=== PATIENT | male | born 1960 | race Caucasian/White ===

== ENCOUNTER 2020-01-02 18:11 | Emergency (ER) | payer MEDICAID ==
[~2020-01-02] VITALS: Ht 167.6 cm; Wt 95.7 kg
[~2020-01-02 18:11] MED LIST: ALBU6.7H9 INH; AMIT-189 PO; BENA20TA2 PO; BUPR100T4 PO; FENO134C9 PO; FENO145T38 PO; FLO0.4C PO; GABA-532 PO; NAPR-1154 PO; OMEP20CA4 PO; QUET300T2 PO; SPIIN INH; TIZA4TAB11 PO
[2020-01-02 18:25] VITALS: BP 137/108
[2020-01-02] MEDS ORDERED: SULF1TAB49 PO (19:26)
== END 2020-01-02 19:34 | disposition home or self-care (01) ==
LOC: ER 18:12
DX: L02.413 Cutaneous abscess of right upper limb (principal); R20.0 Anesthesia of skin; I10 Essential (primary) hypertension; K21.9 Gastro-esophageal reflux disease without esophagitis; G89.29 Other chronic pain; Z90.49 Acquired absence of other specified parts of digestive tract; Z79.2 Long term (current) use of antibiotics; Z79.899 Other long term (current) drug therapy
CPT/HCPCS: 99283

== ENCOUNTER 2021-06-17 13:09 | Inpatient (IN) | payer MEDICAID ==
[~2021-06-17] VITALS: Ht 162.6 cm; Wt 140.0 kg
[2021-06-17] MEDS ORDERED: ringers solution, lacted 1,000 ML IV ONE ×3 (13:55→16:40)
[2021-06-17] MEDS ORDERED: iohexol 300mg/ml 100ml inj. ONE (14:12)
[2021-06-17 14:18] LABS: BASOPHILS % (AUTO) 0.2 % (0-1); EOSINOPHILS % (AUTO) 0.2 % (0-6); HEMATOCRIT 52.6 % (42.0-52.0); HEMOGLOBIN 17.7 g/dl (14.0-17.9); LYMPHOCYTES # (AUTO) 0.9 X10'3 (1.1-4.8); LYMPHOCYTES % (AUTO) 4.6 % (21-51); MEAN CORPUSCULAR HEMOGLOBIN 32.1 PG (27.0-31.0); MEAN CORPUSCULAR HGB CONC 33.6 g/dL (33.0-36.5); MEAN CORPUSCULAR VOLUME 95.6 FL (78-98); MEAN PLATELET VOLUME 8.4 FL (7.4-10.4); MONOCYTES # (AUTO) 0.8 X10'3 (0-0.9); NEUTROPHILS # (AUTO) 17.3 X10'3 (1.8-7.7); PLATELET COUNT 237 X10'3 (140-440); RED CELL DISTRIBUTION WIDTH 13.5 % (11.5-14.5)
[2021-06-17 14:25] LABS: ALANINE AMINOTRANSFERASE 52 U/L (12-78); ALBUMIN 3.8 G/DL (3.4-5.0); ALKALINE PHOSPHATASE 84 IU/L (46-116); ANION GAP 7 (8-16); ASPARTATE AMINO TRANSFERASE 33 U/L (10-37); BILIRUBIN,TOTAL 1.7 MG/DL (0.1-1.0); BLOOD UREA NITROGEN 29 MG/DL (7-18); BUN/CREATININE RATIO 19.3 (5.4-32.0); CALCIUM 9.9 MG/DL (8.5-10.1); CHLORIDE 105 MMOL/L (99-107); GLUCOSE 157 MG/DL (70-104); POTASSIUM 4.6 MMOL/L (3.5-5.1); SODIUM 141 MMOL/L (135-145); TOTAL CARBON DIOXIDE 29.2 MMOL/L (24-32); TOTAL PROTEIN 7.7 G/DL (6.4-8.2); eGFR 48 ML/MIN
[2021-06-17 14:32] LABS: LIPASE 201 U/L (73-393)
[2021-06-17] MEDS ORDERED: ondansetron/PF 4mg/2ml inj IV ONE (16:25)
[2021-06-17] MEDS ORDERED: metroNIDAZOLE-Flagyl 500mg/NS 100 ML IV ONE (16:40)
[2021-06-17] MEDS ORDERED: piperacillin/tazo 3.375gm/50ml 50 ML IV ONE (16:40)
[2021-06-17] MEDS ORDERED: morphine 2 MG/ML inj. syringe IV PRN (18:15)
[2021-06-17] MEDS ORDERED: ondansetron/PF 4mg/2ml inj IV PRN (18:15)
[2021-06-17] MEDS ORDERED: magnesium 2GM in 50ml NS 50 ML IV PRN (18:15)
[2021-06-17] MEDS ORDERED: magnesium Cl slow-release 64mg tablet PO PRN (18:15)
[2021-06-17] MEDS ORDERED: potassium Cl 20 mEq SR tablet PO PRN ×2 (18:15)
[2021-06-17] MEDS ORDERED: potassium CL 10mEq/100ml bag 100 ML IV PRN (18:15)
[2021-06-17] MEDS ORDERED: acetaminophen 325mg tablet PO PRN (18:15)
[2021-06-17] MEDS ORDERED: mag hydrox/Alum hydrox/simeth 30ml oral suspension PO PRN (18:15)
[2021-06-17] MEDS ORDERED: magnesium 4gm in 100ml NS 100 ML IV PRN (18:15)
[2021-06-17] MEDS ORDERED: magnesium hydroxide 30ml (MOM) UD suspension PO PRN (18:15)
[2021-06-17] MEDS ORDERED: OMEP20CA16 PO (18:40)
[2021-06-17] MEDS ORDERED: CLON0.1T2 PO (18:40)
[2021-06-17] MEDS ORDERED: AMIT150T PO (18:40)
[2021-06-17] MEDS ORDERED: QUET100T34 PO (18:40)
[2021-06-17] MEDS ORDERED: LORA-268 PO (18:40)
[2021-06-17] MEDS ORDERED: FLUT15.815 (18:40)
[2021-06-17] MEDS ORDERED: GABA300C PO (18:40)
[2021-06-17] MEDS ORDERED: NAPR-996 PO (18:40)
[2021-06-17] MEDS ORDERED: BENA20TA83 PO (18:40)
--- NOTE | 2021-06-17 18:41 | NUR ---
Patient up to bathroom w/o problem.
[2021-06-17] MEDS: K and/or MAG REPLACEMENT MC SCH (20:00)
[2021-06-17] MEDS: docusate sod 100mg capsule PO SCH (20:00)
[2021-06-17] MEDS: normal saline 1000ml 1,000 ML IV SCH (22:57)
[2021-06-17] MEDS: morphine 2 MG/ML inj. syringe IV PRN (23:50)
[2021-06-17] MEDS ORDERED: TIZA-205 PO (23:51)
[2021-06-18] VITALS: BP 143/95
[2021-06-18] MEDS: piperacillin/tazo 4.5gm/100ml 100 ML IV SCH ×4 (00:23→23:39)
[2021-06-18] MEDS: morphine 2 MG/ML inj. syringe IV PRN ×5 (03:45→22:48)
[2021-06-18] MEDS: normal saline 1000ml 1,000 ML IV SCH ×3 (04:15→21:25)
[2021-06-18 06:00] LABS: BASOPHILS % (AUTO) 0.2 % (0-1); EOSINOPHILS # (AUTO) 0.1 X10'3 (0-0.9); EOSINOPHILS % (AUTO) 0.7 % (0-6); HEMATOCRIT 46.1 % (42.0-52.0); HEMOGLOBIN 15.6 g/dl (14.0-17.9); LYMPHOCYTES # (AUTO) 1.2 X10'3 (1.1-4.8); LYMPHOCYTES % (AUTO) 10.1 % (21-51); MEAN CORPUSCULAR HEMOGLOBIN 31.9 PG (27.0-31.0); MEAN CORPUSCULAR HGB CONC 33.8 g/dL (33.0-36.5); MEAN CORPUSCULAR VOLUME 94.6 FL (78-98); MEAN PLATELET VOLUME 8.8 FL (7.4-10.4); MONOCYTES # (AUTO) 1.3 X10'3 (0-0.9); MONOCYTES % (AUTO) 11.3 % (2-12); NEUTROPHILS # (AUTO) 9.1 X10'3 (1.8-7.7); NEUTROPHILS % (AUTO) 77.7 % (42-75); PLATELET COUNT 182 X10'3 (140-440); RED BLOOD COUNT 4.87 X10'6 (4.70-6.10); RED CELL DISTRIBUTION WIDTH 14.1 % (11.5-14.5); WHITE BLOOD COUNT 11.7 X10'3 (4.5-11.0)
[2021-06-18 06:19] LABS: ANION GAP 6 (8-16); BLOOD UREA NITROGEN 27 MG/DL (7-18); BUN/CREATININE RATIO 24.5 (5.4-32.0); CALCIUM 8.9 MG/DL (8.5-10.1); CHLORIDE 103 MMOL/L (99-107); GLUCOSE 110 MG/DL (70-104); POTASSIUM 4.2 MMOL/L (3.5-5.1); SODIUM 137 MMOL/L (135-145); TOTAL CARBON DIOXIDE 27.6 MMOL/L (24-32); eGFR 68 ML/MIN
--- NOTE | 2021-06-18 06:40 | NUR ---
Report giving to on coming nurse.
--- NOTE | 2021-06-18 06:42 | NUR ---
Patient in room [facility]. I have received report from Jerome SAMANIEGO and had the opportunity to ask questions and assume patient care.
[2021-06-18 07:00] VITALS: BP 129/83
[2021-06-18] MEDS: docusate sod 100mg capsule PO SCH ×2 (08:00→19:59)
[2021-06-18] MEDS: enoxaparin 40mg/0.4ml syringe SUBCUT SCH (08:00)
[2021-06-18] MEDS: K and/or MAG REPLACEMENT MC SCH ×2 (08:00→19:54)
--- NOTE | 2021-06-18 09:01 | NUR ---
Patient experiencing bloody diarrhea at this time.
[2021-06-18] MEDS ORDERED: iohexol 350MG/ML 100ml bottle IV ONE (09:19)
[2021-06-18 11:00] VITALS: BP 127/76
[2021-06-18 11:52] LABS: C DIFF SPECIMEN=DIARRHEA? ACCEPTABLE; C DIFFICILE TOXINS A&B NEGATIVE (Neg)
[2021-06-18 13:46] LABS: HEMATOCRIT 44.1 % (42.0-52.0); MEAN CORPUSCULAR HEMOGLOBIN 32.2 PG (27.0-31.0); MEAN CORPUSCULAR VOLUME 94.7 FL (78-98); MEAN PLATELET VOLUME 8.3 FL (7.4-10.4); PLATELET COUNT 158 X10'3 (140-440); RED BLOOD COUNT 4.66 X10'6 (4.70-6.10); RED CELL DISTRIBUTION WIDTH 13.8 % (11.5-14.5); WHITE BLOOD COUNT 10.4 X10'3 (4.5-11.0)
[2021-06-18] MEDS ORDERED: PEG 3350/Na sulf,bicarb,Cl/KCl oral sol 4 liter bottle PO ONE (14:40)
--- NOTE | 2021-06-18 18:31 | NUR ---
Problems reprioritized. Patient report given, questions answered & plan of care reviewed with Jerome SAMANIEGO.
[2021-06-18 19:00] VITALS: BP 122/79
[2021-06-18 20:06] LABS: C-REACTIVE PROTEIN 8.87 MG/DL (0.0-0.5)
[2021-06-19] VITALS (9 sets, daily range): BP systolic 122–155; BP diastolic 79–96
[2021-06-19] MEDS: morphine 2 MG/ML inj. syringe IV PRN ×4 (03:57→21:02)
[2021-06-19 05:45] LABS: BASOPHILS % (AUTO) 0.3 % (0-1); EOSINOPHILS # (AUTO) 0.1 X10'3 (0-0.9); EOSINOPHILS % (AUTO) 1.3 % (0-6); HEMATOCRIT 42.2 % (42.0-52.0); HEMOGLOBIN 14.5 g/dl (14.0-17.9); LYMPHOCYTES # (AUTO) 1.1 X10'3 (1.1-4.8); LYMPHOCYTES % (AUTO) 10.1 % (21-51); MEAN CORPUSCULAR HEMOGLOBIN 32.5 PG (27.0-31.0); MEAN CORPUSCULAR HGB CONC 34.3 g/dL (33.0-36.5); MEAN CORPUSCULAR VOLUME 94.7 FL (78-98); MEAN PLATELET VOLUME 8.2 FL (7.4-10.4); MONOCYTES # (AUTO) 1.1 X10'3 (0-0.9); NEUTROPHILS # (AUTO) 8.5 X10'3 (1.8-7.7); NEUTROPHILS % (AUTO) 78.3 % (42-75); PLATELET COUNT 147 X10'3 (140-440); RED BLOOD COUNT 4.46 X10'6 (4.70-6.10); RED CELL DISTRIBUTION WIDTH 13.8 % (11.5-14.5); WHITE BLOOD COUNT 10.8 X10'3 (4.5-11.0)
[2021-06-19 05:54] LABS: ALBUMIN 2.8 G/DL (3.4-5.0); ANION GAP 7 (8-16); BLOOD UREA NITROGEN 16 MG/DL (7-18); BUN/CREATININE RATIO 17.6 (5.4-32.0); CALCIUM 8.5 MG/DL (8.5-10.1); CHLORIDE 104 MMOL/L (99-107); CREATININE 0.91 MG/DL (0.60-1.10); GLUCOSE 92 MG/DL (70-104); POTASSIUM 3.8 MMOL/L (3.5-5.1); SODIUM 137 MMOL/L (135-145); TOTAL CARBON DIOXIDE 26.2 MMOL/L (24-32); eGFR 85 ML/MIN
[2021-06-19] MEDS: normal saline 1000ml 1,000 ML IV SCH ×2 (06:19→20:48)
[2021-06-19] MEDS: docusate sod 100mg capsule PO SCH ×2 (07:56→19:15)
[2021-06-19] MEDS: enoxaparin 40mg/0.4ml syringe SUBCUT SCH (07:57)
[2021-06-19] MEDS: piperacillin/tazo 4.5gm/100ml 100 ML IV SCH ×3 (07:58→23:38)
[2021-06-19] MEDS: K and/or MAG REPLACEMENT MC SCH ×2 (08:00→19:00)
[2021-06-19] MEDS ORDERED: MIDAZolam 1 MG/ML 5ML VIAL ONE (12:39)
[2021-06-19] MEDS ORDERED: fentaNYL/PF 50MCG/1 ML 2ML syringe ONE (12:39)
[2021-06-19] MEDS ORDERED: tizanidine 4mg tablet PO PRN (16:50)
[2021-06-19] MEDS ORDERED: amitriptyline 50mg tablet PO PRN (16:50)
[2021-06-19] MEDS ORDERED: LORazepam 0.5 MG tablet PO PRN (16:50)
--- NOTE | 2021-06-19 18:08 | NUR ---
Problems reprioritized. Patient report given, questions answered & plan of care reviewed with ADEN Gonzales.
--- NOTE | 2021-06-19 18:17 | NUR ---
Problems reprioritized. Patient report given, questions answered & plan of care reviewed with VALARIE Gonzales.
[2021-06-19] MEDS: quetiapine 100mg tablet PO SCH ×2 (18:52→20:46)
[2021-06-19] MEDS: pantoprazole 40mg Tablet.DR PO SCH (19:16)
[2021-06-19] MEDS: lactobacillus rhamnosus 10,000 MMU CELLS/CAPSULE PO SCH (19:16)
[2021-06-19] MEDS: gabapentin 300mg capsule PO SCH (20:46)
[2021-06-19] MEDS ORDERED: cloNIDine 0.1 mg tablet PO SCH (21:00)
[2021-06-20] VITALS: BP 147/88
[2021-06-20 06:02] LABS: BASOPHILS % (AUTO) 0.5 % (0-1); EOSINOPHILS # (AUTO) 0.2 X10'3 (0-0.9); EOSINOPHILS % (AUTO) 3.2 % (0-6); HEMATOCRIT 42.2 % (42.0-52.0); HEMOGLOBIN 14.2 g/dl (14.0-17.9); LYMPHOCYTES % (AUTO) 15.6 % (21-51); MEAN CORPUSCULAR HEMOGLOBIN 32.1 PG (27.0-31.0); MEAN CORPUSCULAR HGB CONC 33.6 g/dL (33.0-36.5); MEAN CORPUSCULAR VOLUME 95.5 FL (78-98); MONOCYTES # (AUTO) 0.7 X10'3 (0-0.9); MONOCYTES % (AUTO) 11.9 % (2-12); NEUTROPHILS # (AUTO) 4.3 X10'3 (1.8-7.7); NEUTROPHILS % (AUTO) 68.8 % (42-75); PLATELET COUNT 149 X10'3 (140-440); RED BLOOD COUNT 4.42 X10'6 (4.70-6.10); RED CELL DISTRIBUTION WIDTH 13.6 % (11.5-14.5); WHITE BLOOD COUNT 6.3 X10'3 (4.5-11.0)
[2021-06-20] MEDS: normal saline 1000ml 1,000 ML IV SCH (06:08)
--- NOTE | 2021-06-20 06:24 | NUR ---
Report given to RNJOSE
[2021-06-20 06:28] LABS: ALBUMIN 2.7 G/DL (3.4-5.0); ANION GAP 8 (8-16); BLOOD UREA NITROGEN 10 MG/DL (7-18); BUN/CREATININE RATIO 11.8 (5.4-32.0); CALCIUM 8.8 MG/DL (8.5-10.1); CHLORIDE 105 MMOL/L (99-107); CREATININE 0.85 MG/DL (0.60-1.10); GLUCOSE 85 MG/DL (70-104); POTASSIUM 3.9 MMOL/L (3.5-5.1); SODIUM 139 MMOL/L (135-145); TOTAL CARBON DIOXIDE 26.5 MMOL/L (24-32); eGFR > 90 ML/MIN
[2021-06-20 08:00] VITALS: BP 125/81
[2021-06-20] MEDS ORDERED: fluticasone nasal spray 16GM bottle NS SCH (08:00)
[2021-06-20] MEDS ORDERED: lisinopril 20mg tablet PO SCH (08:00)
[2021-06-20] MEDS: quetiapine 100mg tablet PO SCH (08:00)
[2021-06-20] MEDS: gabapentin 300mg capsule PO SCH (08:00)
[2021-06-20] MEDS: pantoprazole 40mg Tablet.DR PO SCH (08:46)
[2021-06-20] MEDS: enoxaparin 40mg/0.4ml syringe SUBCUT SCH (08:46)
[2021-06-20 08:47] VITALS: BP_SYST 120
[2021-06-20] MEDS: docusate sod 100mg capsule PO SCH (08:48)
[2021-06-20] MEDS: lactobacillus rhamnosus 10,000 MMU CELLS/CAPSULE PO SCH (08:48)
[2021-06-20] MEDS: piperacillin/tazo 4.5gm/100ml 100 ML IV SCH (08:48)
[2021-06-20] MEDS: K and/or MAG REPLACEMENT MC SCH (08:49)
[2021-06-20] MEDS ORDERED: METR-159 PO (10:06)
[2021-06-20] MEDS ORDERED: CIPR-202 PO (10:06)
== END 2021-06-20 12:20 | disposition home or self-care (01) | DRG 720 ==
LOC: ER 13:10 → ED HOLD 18:13 → SUR 3N 22:44
PROVIDERS: ADMIT Family Medicine; ATTEND Family Medicine
PROC: BW211ZZ Computerized Tomography (CT Scan) of Abdomen and Pelvis using Low Osmolar Contrast (ICD-10-PCS; 2021-06-17)
PROC: B4201ZZ Computerized Tomography (CT Scan) of Abdominal Aorta using Low Osmolar Contrast (ICD-10-PCS; 2021-06-18)
PROC: B4241ZZ Computerized Tomography (CT Scan) of Superior Mesenteric Artery using Low Osmolar Contrast (ICD-10-PCS; 2021-06-18)
PROC: B4281ZZ Computerized Tomography (CT Scan) of Bilateral Renal Arteries using Low Osmolar Contrast (ICD-10-PCS; 2021-06-18)
PROC: B42C1ZZ Computerized Tomography (CT Scan) of Pelvic Arteries using Low Osmolar Contrast (ICD-10-PCS; 2021-06-18)
PROC: B42H1ZZ Computerized Tomography (CT Scan) of Bilateral Lower Extremity Arteries using Low Osmolar Contrast (ICD-10-PCS; 2021-06-18)
PROC: B4211ZZ Computerized Tomography (CT Scan) of Celiac Artery using Low Osmolar Contrast (ICD-10-PCS; 2021-06-18)
PROC: 0DBM8ZX Excision of Descending Colon, Via Natural or Artificial Opening Endoscopic, Diagnostic (ICD-10-PCS; principal; 2021-06-19)
PROC: 0DBL8ZX Excision of Transverse Colon, Via Natural or Artificial Opening Endoscopic, Diagnostic (ICD-10-PCS; 2021-06-19)
DX: A41.9 Sepsis, unspecified organism (principal); N17.0 Acute kidney failure with tubular necrosis; K57.33 Diverticulitis of large intestine without perforation or abscess with bleeding; K55.9 Vascular disorder of intestine, unspecified; Z20.822 Contact with and (suspected) exposure to COVID-19; K63.3 Ulcer of intestine; E78.5 Hyperlipidemia, unspecified; E66.9 Obesity, unspecified; F32.A Depression, unspecified; F41.9 Anxiety disorder, unspecified; K64.8 Other hemorrhoids; K21.9 Gastro-esophageal reflux disease without esophagitis; F17.210 Nicotine dependence, cigarettes, uncomplicated; I10 Essential (primary) hypertension; N40.0 Benign prostatic hyperplasia without lower urinary tract symptoms; Z85.46 Personal history of malignant neoplasm of prostate; Z92.3 Personal history of irradiation; Z68.43 Body mass index [BMI] 50.0-59.9, adult; Z79.899 Other long term (current) drug therapy; Z90.49 Acquired absence of other specified parts of digestive tract; Z71.6 Tobacco abuse counseling
CPT/HCPCS: 36415; 45380; 71045; 74174; 74177; 80048; 80053; 83605; 83690; 83735; 83880; 84132; 84145; 84484; 85025; 85027; 86140; 87040; 87081; 87324; 87449; 87635; 93005; 99152; 99153; 99285; A4620; C9803; G0378; J1650; J2250; J2270; J2543; J3010; J3490; J7030; J7040; J7120; Q9967

== ENCOUNTER 2022-10-16 14:42 | Emergency (ER) | payer MEDICAID ==
[~2022-10-16] VITALS: Ht 167.6 cm; Wt 95.5 kg
[~2022-10-16 14:42] MED LIST changes: -ALBU6.7H9 INH; -AMIT-189 PO; +AMIT150T PO; -BENA20TA2 PO; +BENA20TA83 PO; -BUPR100T4 PO; +CLON0.1T2 PO; -FENO134C9 PO; -FENO145T38 PO; -FLO0.4C PO; +FLUT15.815; -GABA-532 PO; +GABA300C PO; +LORA-268 PO; -NAPR-1154 PO; +NAPR-996 PO; +OMEP20CA16 PO; -OMEP20CA4 PO; +QUET100T34 PO; -QUET300T2 PO; -SPIIN INH; +TIZA-205 PO; -TIZA4TAB11 PO
[2022-10-16 15:28] VITALS: BP 162/100
== END 2022-10-16 16:31 | disposition left against medical advice (07) ==
LOC: ER 14:43
DX: M79.601 Pain in right arm (principal); Z53.21 Procedure and treatment not carried out due to patient leaving prior to being seen by health care provider; W55.01XA Bitten by cat, initial encounter; Y93.89 Activity, other specified; Y92.89 Other specified places as the place of occurrence of the external cause; Y99.8 Other external cause status
CPT/HCPCS: 73090; 99281

== ENCOUNTER 2025-05-15 22:48 | Inpatient (IN) | payer MEDICAID ==
[~2025-05-15] VITALS: Ht 167.6 cm; Wt 79.1 kg
[~2025-05-15 22:48] MED LIST changes: -AMIT150T PO; +AMIT150T35 PO; +NAPR-1168 PO; -NAPR-996 PO
[2025-05-15 22:52] VITALS: TEMP 97.1
--- NOTE | 2025-05-15 23:09 | ELECTROCARDIOGRAPH REPORT ---
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 Santana Benitez Measurements Intervals [place] Rate: 98 P: 53 AL: 185 QRS: 10 QRSD: 87 T: 33 QT: 333 QTc: 426 Interpretive Statements Sinus rhythm Anteroseptal infarct, age indeterminate Electronically Signed On 05-18-2025 21:15:[address] Santana Benitez Please click the below link to view image of tracing.
--- NOTE | 2025-05-15 23:12 | Physician Documentation ---
History of Present Illness ~ General Chief Complaint: Rectal Bleeding Stated Complaint: DIARRHEA Time Seen by MD: 22:51 OK to notify your PCP?: Yes Primary Medical Doctor: manan Source: patient, family Mode of Arrival: POV Exam Limitations: no limitations History of Present Illness Initial Comments 64 year old male presents to the ED accompanied by his with concerns of rectal bleeding. Patient states that the bleeding began at 1800 this evening, he was walking when it started and it "filled both of his pant legs with blood and clots". He dscribes his stools as being black. He previously had a bout of colitis a few years ago, had an endoscopy at that time but results are unknown. Patient does not drink alcohol. Patient denies any other associated symptoms. Patient denies any other alleviating or exacerbating factors at this time. Medication Reconciliation Allergies: Coded Allergies: No Known Drug Allergies (Unverified Allergy, Unknown, 12/07/14) Scheduled Benazepril HCl (Benazepril HCl), 1 TAB PO DAILY, (Reported) Clonidine HCl (Clonidine HCl), 2 TAB PO HS, (Reported) Fluticasone Propionate (Aller-Edmund), 2 SPRAYS NA DAILY, (Reported) Gabapentin (Neurontin), 1 CAP PO TID, (Reported) Naproxen (Naproxen), 1 TAB PO BID, (Reported) Omeprazole (Omeprazole), 1 CAP PO BID, (Reported) Quetiapine Fumarate (Quetiapine Fumarate), 1 TAB PO QID, (Reported) Scheduled PRN Amitriptyline HCl (Amitriptyline HCl), 2 TAB PO HS PRN for insomnia, (Reported) Lorazepam (Ativan), 1 TAB PO TID PRN for anxiety, (Reported) Tizanidine Hcl (Zanaflex), 1 TAB PO DAILY PRN for muscle spasms, (Reported) Past Medical History Past Medical History: Hypertension, GERD, Chronic Back Pain, *CANCER* Past Surgical History: cholecystectomy Alcohol Use: None Drug Use: none Lives In: Home Occupation: employed Review of Systems All Other Systems at this time: Reviewed and Negative ROS Constitutional: Negative for fever and chills. HENT: Negative for sore throat and rhinorrhea. Eyes:Negative for pain and redness. Respiratory: Negative for cough and shortness of breath. Cardiovascular: Negative for chest pain and palpitations. Gastrointestinal: Negative for nausea and vomiting. Genitourinary: Negative for dysuria and hematuria. Musculoskeletal: Negative for acute back pain and acute neck pain. Skin: Negative for rash and pruritus. Neurological: Negative for acute numbness or weakness. Physical Exam Physical Exam Vital Signs: RN Vital Signs have been reviewed: Yes, Temperature: 97.1, Heart Rate: 99, Respiratory Rate: 16, BP: 91/51, Pulse Oximetry: 97, Weight: 79.090 Pulse Oximetry Reflects: adequate oxygenation Physical Exam General Appearance: WDWN, No Distress, Cooperative, Awake Head: No Trauma. Scalp Normal Eyes: Lids normal, conjunctiva normal ENT: Mucous membranes normal, facial bones normal, lips normal, oropharynx normal Neck: Normal active FROM, non-tender with ROM, no meningeal signs, No JVD Back: Normal active FROM, non-tender with ROM, no CVAT Resp: Normal resp rate, normal flow, lungs clear to auscultation, no resp distress, no retractions Heart: Reg rhythm, no murmur Abd: 2+ periumbilical tenderness to palpation, no pain over McBurneys point. Negative Plover sign. Rectal: Guaiac positive. Musc/Skel: No chest wall tenderness, Normal ROM UE's and LE's, No acute bone/joint abnormality or tenderness Skin: Normal color, no petechia/purpura, no rash Extremities: No edema Neuro: Motor 5/5 & Symmetric Bilat, CN 2-12 grossly intact and symmetric bilat. Oriented x4, speech normal. Psych: Mood & Affect: Normal, Depressed: 0, Awareness & insight normal Progress Results/Orders Results/Orders Orders - ALEJA LOWERY MD Chest,Single View (05/15/25 23:01) Electrocardiogram (05/15/25 23:01) Nothing By Mouth (05/16/25 Breakfast) Monitor (05/15/25 23:01) Saline Lock (05/15/25 23:01) Ct Abdomen Pelvis (05/15/25 ) Pantoprazole 40mg Iv (Protonix 40mg Iv) (05/15/25 23:35) Occult Bld Stool (05/16/25 ) Md To Page (05/16/25 ) Completed Orders - ALEJA LOWERY MD Electrocardiogram (05/15/25 ) Cbc/Diff (12/21/25 23:01) BMP (05/15/25 23:01) PTT (05/15/25 23:01) Pt Inr (05/15/25 23:01) Type And Screen (05/15/25 23:01) Chest,Single View (05/15/25 23:01) Ct Abdomen Pelvis (05/15/25 ) Ondansetron Inj. (Zofran 4mg/2ml Vial) (05/15/25 23:35) Morphine 4mg/Ml Inj. (Morphine Inj.) (05/15/25 23:45) Morphine 4mg/Ml Inj. (Morphine Inj.) (05/16/25 00:00) Ua W/Microscopic, Cult If Ind (05/16/25 00:57) Medications Received in ER Medications (Trade) Dose Ordered Sig/Víctor Route PRN Reason Start Time Stop Time Status Last Admin Dose Admin (Protonix 40mg IV) 40 mg ONCE IV 05/15/25 23:35 05/16/25 00:02 40 MG (Zofran 4mg/2ml vial) 4 mg ONCE ONCE IV 05/15/25 23:35 05/15/25 23:36 DC 05/16/25 00:02 4 MG (morphine inj.) 2 mg ONCE ONCE IV 05/15/25 23:45 05/15/25 23:58 DC 05/15/25 23:55 2 MG Vital Signs 05/15/25 05/15/25 05/16/25 05/16/25 22:52 23:55 00:08 01:25 Temp 97.1 Pulse 99 90 Resp 16 16 18 16 B/P (MAP) 91/51 112/71 (85) Pulse Ox 97 99 O2 Flow Rate 0 Laboratory Tests Test 05/15/25 23:17 05/16/25 00:57 White Blood Count 8.3 Red Blood Count 4.30 L Hemoglobin 13.8 L Hematocrit 40.6 L Mean Corpuscular Volume 94.3 Mean Corpuscular Hemoglobin 32.0 H Mean Corpuscular Hemoglobin Concent 33.9 Red Cell Distribution Width 13.4 Platelet Count 173 Mean Platelet Volume 8.8 Neutrophils (%) (Auto) 60.9 Lymphocytes (%) (Auto) 26.1 Monocytes (%) (Auto) 10.3 Eosinophils (%) (Auto) 2.0 Basophils (%) (Auto) 0.7 Neutrophils # (Auto) 5.1 Lymphocytes # (Auto) 2.2 Monocytes # (Auto) 0.9 Eosinophils # (Auto) 0.2 Basophils # (Auto) 0.1 CBC Comment Prothrombin Time 10.4 INR International Normalized Ratio 1.0 Activated Partial Thromboplast Time 25 Coagulation Comments Sodium Level 145 Potassium Level 4.0 Chloride Level 110 H Carbon Dioxide Level 26.0 Anion Gap 9 Blood Urea Nitrogen 29 H Creatinine 1.04 Estimated GFR/1.73 m2 72 BUN/Creatinine Ratio 27.9 H Glucose Level 88 Calcium Level 8.9 Albumin 3.8 Chemistry Comments Urine Specimen Description Non-specified Urine Color Yellow Urine Clarity Clear Urine pH 5.5 Urine Specific Conner >=1.030 Urine Protein Trace Urine Glucose (UA) Negative Urine Ketones Trace H Urine Occult Blood Negative Urine Nitrite Negative Urine Bilirubin Negative Urine Urobilinogen 0.2 Urine Leukocyte Esterase Negative Urine RBC 0-2 Urine WBC 10-20 H Urine Squamous Epithelial Cells None seen Urine Bacteria 1+ Urine Mucus Many Urine Culture Indicated Indicated Volume Urine Centrifuged 10 ml Urine Comment EKG/XRAY/CT/US/VASC/MRI EKG : Intepreting Monitor?: No Additional Comment 1107: Dr. Lowery interpreted the EKG to show Normal sinus rhythm rate of 98, normal axis, poor r-wave progression, abnormal EKG. Chest X-Ray : Interpreted By: radiologist Views: 1 VIEW Additional Comments 2340: Dr. Lowery independently reviewed the 1 view chest x-ray to show normal heart and lungs. CT : Interpreted By: radiologist CT: abdomen/pelvis With Contrast?: No Impression IMPRESSION: Colonic diverticulosis. Otherwise no clear cause for bleeding. No acute abnormality. Medical Decision Making Additional information obtaine: other Findings OTHER Differential Diagnosis ER COURSE -I have reviewed the triage note. History obtained from PATIENT AND FAMILY -All Labs, if applicable, independently reviewed by me I checked in EMR for old Records Repeat Evaluation: 0137: Paging hospitalist. 0212: Resident hospitalist in the ED, agrees to evaluate patient for admission. Results and plan of care discussed with patient, patient understands and is agreeable to plan and disposition. Limited: (2 points from category 1 or one discussion with independent historian). Moderate: one of the following (3 points from category 1, or independent interpretations of tests performed by another physician/QHP: (ct,ecg,rad camelia,rhythm strip,or comparing xray to prior), or discussion of tests or management with other professionals (not including [facility] ER doc/PA or family members.) High: (2 of 3 from : category 1 (3 points), independent interpretation of tests performed by another physician/QHP, and discussion of tests or management). Prior [facility] ER notes reviewed: Category 1: Number of Tests ordered or reviewed: >3 Number of Independent Historians: 2 Non [facility] ER notes reviewed: None. SOCIAL DETERMINANTS OF HEALTH Problems related to: [ ] Challenges with access to Primary Care or Outpatient Speciality Care [ ] Psychosocial circumstances such as mental health issues [ ] Social environment: such as violence or substance abuse [ ] Housing and economic circumstances: such as homelessness [ ] Employment and unemployment: such as recently loss of employment [ ] Occupational exposures or injuries: [ ] Accessing ED outside of normal PCP hours [ ] Language barrier: [ ] Primary support group, including family circumstances: Portions of this chart may have been created with [employer] voice recognition software. Occasional wrong-word or sound-alike substitutions may have occurred due to the inherent limitations of voice recognition software. Please read the chart carefully and recognize, using context, where these substitutions have occurred. Departure Time of Disposition: 05:27 Disposition: 09 ADMITTED INPATIENT Admitted to Inpatient Unit: to hospitalist Admission Level of Care: Med/Surg with Tele Impression: Primary Impression: GI bleed Qualified Codes: K92.1 - Melena Condition: Unstable Referrals: NO PRIMARY CARE PROVIDER (PCP) Signature Scribe Signature: Scribed for Aleja Lowery MD by Guerita Frost . 05/15/25 23:39 Attestation: THE NOTE ACCURATELY REFLECTS WORK AND DECISIONS MADE BY ME.ALEJA LOREDO MD, MD May 15, 2025 23:12 GUERITA COUGHLIN May 15, 2025 23:43
--- NOTE | 2025-05-15 23:42 | RADIOLOGY REPORT ---
CHEST RADIOGRAPH INDICATION: Hypotension TECHNIQUE: Single frontal view of the chest was obtained COMPARISON: CHEST,SINGLE VIEW on DOS: 06/17/21 FINDINGS: Minimal left basilar atelectasis. Otherwise, lungs and pleural spaces are clear. Cardiac silhouette and eber are within normal limits. Bones and soft tissues demonstrate no significant abnormality. IMPRESSION: No acute disease.
[2025-05-15] MEDS: morphine 4 MG/ML inj SYRINge IV ONE (23:55)
[2025-05-15 23:57] LABS: MEAN PLATELET VOLUME 8.8 FL (7.4-10.4); RED CELL DISTRIBUTION WIDTH 13.4 % (11.5-14.5)
[2025-05-16] VITALS (15 sets, daily range): BP systolic 98–123; BP diastolic 60–82; PULSE 74–82; RESP 10–18; O2SAT 93–100
[2025-05-16] MEDS: morphine 4 MG/ML inj SYRINge IV ONE
[2025-05-16] MEDS: ondansetron/PF 4mg/2ml inj IV ONE (00:02)
[2025-05-16 00:10] LABS: APTT 25 SECONDS (22-32); INR 1.0 INR
[2025-05-16 00:15] LABS: CREATININE 1.04 MG/DL (0.60-1.10); TOTAL CARBON DIOXIDE 26.0 MMOL/L (24-32); eCRCL 64 ML/MIN; eGFR 72 ML/MIN
--- NOTE | 2025-05-16 00:28 | RADIOLOGY REPORT ---
EXAM: CT CT ABDOMEN PELVIS History: pain, gi bleed Comparison Study: CTA ABDOMEN PELVIS on DOS: 06/18/21, CT ABDOMEN PELVIS on DOS: 06/17/21 TECHNIQUE: Multidetector spiral CT of the abdomen was performed from lung bases to pubic symphysis. Imaging was performed without IV contrast. Axial, coronal and sagittal multiplanar reformats were obtained from the axial data set by the technologist. Radiation Dose : 1. Abdomen/Pelvis: CTDIvol 15.44 mGy, DLP 880.6 mGy*cm. FINDINGS: Evaluation of solid organs is limited due to lack of intravenous contrast use. Lung Bases: No acute or significant lung base finding. Normal heart size. No pleural or pericardial effusion. Liver: The liver is normal in size. No focal lesions. Gallbladder and Biliary Tree: Gallbladder is surgically absent. Spleen: Unremarkable Pancreas: The pancreas is grossly normal in appearance. Adrenal Glands: Unremarkable Kidneys: Kidneys are grossly normal without calculi or hydronephrosis. Bladder: Grossly unremarkable for degree of distention. Bowel: The stomach is grossly normal in appearance. Small bowel and colon are normal in caliber and distribution. Normal appendix is visualized in the right lower quadrant without findings of appendicitis. Scattered colonic diverticula. Ascites: Absent Lymphadenopathy: No mesenteric, retroperitoneal or periportal lymphadenopathy. Abdominal Wall and Mesentery: Small fat containing left inguinal hernia.. Vasculature: The visualized abdominal aorta is normal in size and caliber. Evaluation of abdominal and pelvic vessels is limited due to lack of intravenous contrast. Pelvic Organs: Unremarkable Musculoskeletal: No aggressive focal bony lesions, acute fractures or dislocation. IMPRESSION: Colonic diverticulosis. Otherwise no clear cause for bleeding. No acute abnormality. Radiation optimization: All CT scans at this facility use at least one of these dose optimization techniques: automated exposure control mA and/or kV adjustment per patient size (includes targeted exams where dose is matched to clinical indication) or iterative reconstruction.
[2025-05-16 02:07] LABS: LEUKOCYTE ESTERASE ,URINE NEGATIVE (Neg); NITRITES, URINE NEGATIVE (Neg); OCCULT BLOOD,URINE NEGATIVE (Neg)
[2025-05-16 02:08] LABS: UA COLLECTION TYPE NON-SPECIFIED
[2025-05-16 02:31] LABS: MUCUS STRANDS MANY /LPF (Neg); SQUAMOUS EPITHELIAL CELL,UR NONE SEEN /LPF (FEW)
[2025-05-16] MEDS ORDERED: potassium Cl 20 mEq SR tablet PO PRN ×2 (02:35)
[2025-05-16] MEDS ORDERED: mag hydrox/Alum hydrox/simeth 30ml oral suspension PO PRN (02:35)
[2025-05-16] MEDS ORDERED: magnesium sulf-water 2g/50mL 50 ML IV PRN (02:35)
[2025-05-16] MEDS ORDERED: magnesium hydroxide 30ml (MOM) UD suspension PO PRN (02:35)
[2025-05-16] MEDS ORDERED: potassium Cl 40MEQ/1/2NS 520ml 520 ML IV PRN (02:35)
[2025-05-16] MEDS ORDERED: ondansetron/PF 4mg/2ml inj IV PRN (02:35)
[2025-05-16] MEDS ORDERED: magnesium sulf-water 4G/100mL 100 ML IV PRN (02:35)
[2025-05-16] MEDS ORDERED: magnesium Cl slow-release 64mg tablet PO PRN (02:35)
--- NOTE | 2025-05-16 02:50 | HISTORY AND PHYSICAL-Residence ---
History & Physical Providers to CC Resident Creating Document: LAURENCE MORRIS, RES CC: LALO KC MD ~ History of Present Illness Primary Medical Doctor: manan Reason for Admit\Complaint: GI BLEEDING History of Present Illness A 64-year-old male with PMH of HTN and DM presented to the ED in view of blood and blood clots since 6:00 a.m. this morning. Patient had noticed that his pants were full with blood and blood clots followed by black tarry stools. Patient had associated weakness in his lower extremities with no dizziness or sensory deficits or slurring of speech, or loss of consciousness In 2021, patient had an episode of abdominal pain associated with bloody diarrhea when he underwent colonoscopy that revealed ischemic colitis, hyperplastic polyps and mild diverticulosis of the sigmoid colon. Patient endorses associated tight squeezing kind of pain in the epigastrium with a severity of 10/10 with no radiation with burping help relieve his pain. Patient uses NSAIDs (ibuprofen and naproxen) and Wilson for pain in his knees. Patient denies any active anticoagulant use. Allergies: Coded Allergies: No Known Drug Allergies (Unverified Allergy, Unknown, 12/07/14) Home Medications Home Medications Active Reported Zanaflex (Tizanidine Hcl) 4 Mg Tablet 1 Tab PO DAILY PRN Benazepril HCl 20 Mg Tablet 1 Tab PO DAILY Aller-Edmund (Fluticasone Propionate) 15.8 Ml [place].susp 2 Sprays NA DAILY Quetiapine Fumarate 100 Mg Tablet 1 Tab PO QID Ativan (Lorazepam) 0.5 Mg Tablet 1 Tab PO TID PRN Neurontin (Gabapentin) 300 Mg Capsule 1 Cap PO TID Amitriptyline HCl 150 Mg Tablet 2 Tab PO HS PRN Clonidine HCl 0.1 Mg Tablet 2 Tab PO HS Omeprazole 20 Mg Capsule.dr 1 Cap PO BID Naproxen 500 Mg Tablet 1 Tab PO BID Past Medical History Past Medical History HTN DM Anxiety/depression/psychotic disorders Prostatic cancer status post radiation Past Surgical History Surgical History Comment Cholecystectomy Left shoulder repair Past Social History Social History Comment Smokes half pack of cigarettes per day for the last 45 years Denies alcohol use, marijuana or illicit drug use Alcohol Use: None Drug Use: None Lives In: Home Occupation: employed ROS ROS Constitutional: No fever, chills, dizziness, weight gain or loss Eyes: No pain, erythema, discharge, blurring of vision ENT: No sore throat, epistaxis, tinnitus Cardiovascular: No Shortness of breath. Chest pressure, chest discomfort, palpitations, syncope, lower extremity edema, paroxysmal nocturnal dyspnea Respiratory: No Shortness of breath and cough present, No hemoptysis Gastrointestinal: Hematochezia, black tarry stools, abdominal pain. Normal appetite. No nausea, vomiting, diarrhea, constipation, hematemesis Musculoskeletal: No chronmic edema. Integumentary: No change in skin, hair, nails. No swelling, bruising, abrasions Neurologic: No headache, neck pain, numbness or tingling of the extremities, weakness Psychiatric: No delusions, depression, loss of interest in normal activity or change in sleep pattern, hallucinations, suicidal ideations Endocrine: No fatigue, weakness, polydipsia, polyuria, change in appetite, heat or cold intolerance, sweating, dry skin Exam Vitals: Vital Signs Date Time Temp Pulse Resp B/P (MAP) Pulse Ox O2 Delivery O2 Flow Rate FiO2 05/16/25 01:25 90 16 112/71 (85) 99 0 05/15/25 22:52 97.1 General: General: Alert, awake, oriented, not in acute distress HEENT: PERRLA, no icterus, pallor, lymphadenopathy, carotid bruit Respiratory system: Bilateral vesicular breath sounds heard, no adventitious breath sounds CVS: S1-S2 heard, no murmurs/rubs/gallop GI: Tenderness in the epigastric region, Soft, nontender, no organomegaly, no guarding/rigidity, bowel sounds present Neuro: No focal neurological deficits present Mental status exam: alert and consciousness, orientation, memory, speech - Cranial nerve test: Cranial nerves 2-12 intact - Motor system: Nutrition, Tone 3+, Power 5/5, no involuntary movements - Sensory system: Intact - Reflex testing: Biceps, triceps and knee reflexes 2+ - Cerebellar: Normal Extremities: No edema cyanosis clubbing/deformities Skin: Warm and dry Diagnostic Data Last Recorded Lab Results: 05/15/25231605/15/252316 Diagnostic Data: Laboratory Tests Test 05/15/25 23:17 Prothrombin Time 10.4 SECONDS (9.0-12.0) INR International Normalized Ratio 1.0 INR Activated Partial Thromboplast Time 25 SECONDS (22-32) Coagulation Comments Advance Care Planning Advanced Care plannin - 30 Minutes (I spent 20 minutes discussing various resuscitative measures and the patient decided to be full code) Additional Plan Assessment: A 64-year-old male with past medical history of HTN, DM presented to the ED in view of black tarry stools and bright red blood per rectum. Patient is admitted for the evaluation management of possible upper/lower GI bleed. Plan: Possible acute upper GI bleed 2/2 probably chronic gastritis ? lower GI bleed History of colitis CT abdomen: Colonic diverticulosis. Stool guaiac positive Follow up with lactic acid Patient is started on IV Protonix drip H/H stable, vitals stable Continue to monitor H/H q.4h, vitals NPO GI consultation in a.m., patient benefits from upper GI endoscopy Avoid NSAIDs use Acute CVA, rule out Follow up with CT head, lipid panel, A1c Patient's described symptoms is most likely generalized weakness from acute blood loss, stroke less likely HTN Continue to monitor vitals Start antihypertensives per home meds DM type 2 Follow up with the A1c Depression/anxiety/psychotic disorders Start medications per home meds Osteoarthritis Outpatient follow up Nicotine use disorder Counseled for strict avoidance Nicotine patch Medication reconciliation pending Code status: Full code Diet: NPO DVT prophylaxis: SCD Disposition: Admit to PCU, continue to monitor H/H, GI consult/upper GI endoscopy Laurence Morris MD Internal Medicine, PGY 2 Date of Service: May 16, 2025 Billing Provider: LALO KC MD, SIVA, RES May 16, 2025 02:50
[2025-05-16] MEDS: nicotine 14mg patch - 24hr TD ONE (02:55)
[2025-05-16 03:23] LABS: MEAN PLATELET VOLUME 8.5 FL (7.4-10.4); RED CELL DISTRIBUTION WIDTH 13.4 % (11.5-14.5)
[2025-05-16] MEDS: normal saline 1000ml 1,000 ML IV SCH (03:48)
[2025-05-16] MEDS: pantoprazole 40MG/NS 100ML BAG 100 ML IV SCH (06:59)
[2025-05-16] MEDS: HYDROcodone/acetaminophen 5mg/325mg tablet PO PRN (07:03)
[2025-05-16 07:21] LABS: MEAN PLATELET VOLUME 8.5 FL (7.4-10.4); RED CELL DISTRIBUTION WIDTH 13.3 % (11.5-14.5)
[2025-05-16] MEDS: docusate sod 100mg capsule PO SCH (08:00)
[2025-05-16] MEDS: K and/or MAG REPLACEMENT MC SCH (08:00)
--- NOTE | 2025-05-16 08:47 | RADIOLOGY REPORT ---
EXAM: CT CT HEAD INDICATION: stroke COMPARISON: None TECHNIQUE: CT of the head without intravenous contrast. Radiation Dose Information: CT Dose: CTDI volume is 67 mGy. Dose-length product is 1155 mGy*cm The dose indicators for CT are the volume Computed Tomography (CT) Dose Index (CTDIvol) and the Dose Length Product (DLP), and are measured in units of mGy and mGy-cm, respectively. These indicators are not patient dose, but values generated from the CT scanner acquisition factors. The report includes radiation exposure data for exposures received during this examination. FINDINGS: Scattered hypoattenuation in the periventricular and subcortical white matter, suggestive of chronic microvascular disease. The ventricles and sulci are mildly enlarged, compatible with generalized parenchymal volume loss. There is no mass- effect, hemorrhage, midline shift, or abnormal extra-axial fluid collection visible. No calvarial fracture. Essentially clear visualized paranasal sinuses. Mastoid air cells are clear. IMPRESSION: No acute intracranial hemorrhage or mass effect. If there is persistent clinical concern for acute infarct, recommend MRI for further evaluation.
[2025-05-16] MEDS ORDERED: PERFLUTREN PROTEIN-A MICROSPHR (Optison) 0.22 MG/ML 3ML VIAL IV ONE (10:00)
[2025-05-16] MEDS: ringers solution, lacted 1,000 ML IV SCH (11:51)
[2025-05-16] MEDS ORDERED: fentaNYL/PF 50MCG/1 ML 2ML syringe ONE (11:51)
[2025-05-16] MEDS ORDERED: propofol inj 20 ML IV ONE (12:05)
[2025-05-16] MEDS ORDERED: morphine 4 MG/ML inj SYRINge IV PRN (12:07)
[2025-05-16] MEDS ORDERED: PEG 3350/Na sulf,bicarb,Cl/KCl oral sol 4 liter bottle PO ONE (14:00)
--- NOTE | 2025-05-16 15:18 | CONSULTATION REPORT - RESIDENT ---
Consult Providers to CC Resident Creating Document: REENACIARA HUNTSHUKRI CAPUTO History of Present Illness Reason for Admit\Complaint: GI bleed History of Present Illness A 64-year-old male with a past medical history significant for hypertension, type 2 diabetes mellitus, anxiety/depression with psychotic disorder, and prostate cancer status post radiation therapy in 2014, who presented to the emergency department with acute onset gastrointestinal bleeding. The patient reports noticing large amounts of dark-colored tarry stools and blood clots per rectum starting around 5:30 p.m. on the day of presentation, to the extent that his pants were soaked. Also complained of few specks of bright red colored blood. He denies hematemesis. He endorses severe diffuse abdominal pain, described as squeezing sensation rated 10/10, without radiation. Intensity of pain decreased to 5/10 on receiving pain medications in the ED. He admits to chronic NSAID use (ibuprofen and naproxen) as well as intermittent [place] use for back and knee pain. He denies any active anticoagulant or antiplatelet use. The patient also reports generalized weakness, particularly in the lower extremities, after he woke up from sleep on the day of presentation at around 9:30 p.m.. He denies dizziness, syncope, slurred speech, focal weakness, sensory deficits or loss of consciousness. In 2021, the patient had an episode of abdominal pain with bloody diarrhea and underwent colonoscopy, which revealed ischemic colitis, hyperplastic polyps and mild sigmoid diverticulosis. Since admission, the patient has remained hemodynamically stable, with a stable hemoglobin level. EGD performed during this admission showed a normal stomach and duodenum with only mild esophagitis and no active bleeding source. Colonoscopy is scheduled for tomorrow and bowel preparation has been initiated. Allergies: Coded Allergies: No Known Drug Allergies (Unverified Allergy, Unknown, 12/07/14) Home Medications Home Medications Active Reported Zanaflex (Tizanidine Hcl) 4 Mg Tablet 1 Tab PO DAILY PRN Benazepril HCl 20 Mg Tablet 1 Tab PO DAILY Aller-Edmund (Fluticasone Propionate) 15.8 Ml [place].susp 2 Sprays NA DAILY Quetiapine Fumarate 100 Mg Tablet 1 Tab PO QID Ativan (Lorazepam) 0.5 Mg Tablet 1 Tab PO TID PRN Neurontin (Gabapentin) 300 Mg Capsule 1 Cap PO TID Amitriptyline HCl 150 Mg Tablet 2 Tab PO HS PRN Clonidine HCl 0.1 Mg Tablet 2 Tab PO HS Omeprazole 20 Mg Capsule. 1 Cap PO BID Naproxen 500 Mg Tablet 1 Tab PO BID Past Medical History Past Medical History Hypertension Type 2 diabetes mellitus Anxiety, depression, psychotic disorder Prostate cancer, status post radiation therapy (2014) Prior ischemic colitis (2021) Osteoarthritis Nicotine use disorder Past Surgical History Surgical History Comment Cholecystectomy Left shoulder repair Past Social History Social History Comment Denied alcohol and illicit drug use Smoked of about half a pack of cigarettes for the last 40 years ROS ROS Reviewed in full. All negative except for pertinent positive HPI. Exam Vitals: Vital Signs Date Time Temp Pulse Resp B/P (MAP) Pulse Ox O2 Delivery O2 Flow Rate FiO2 05/16/25 14:51 74 05/16/25 14:20 12 123/81 (95) 100 Nasal Cannula 2.0 05/16/25 12:09 98.2 General: Awake , alert, and oriented x4, resting comfortably in the bed, in no acute distress HEENT: Atraumatic, normocephalic, EOMI, anicteric sclera ; pink conjunctiva Neck: Trachea midline. Supple, full range of motion, no JVD Cardiac: Regular rhythm, regular rate with no murmurs all over the precordium. Respiratory: Equal breath sounds bilaterally, no tachypnea, no wheezing ,rub or rales, Chest wall is symmetric and without deformity. Gastrointestinal: Abdomen symmetric, non-distended, diffuse tenderness on palpation, normal bowel sounds x4 quadrant, normoactive, no hepatosplenomegaly Musculoskeletal: No pedal edema, no cyanosis Neurological: Mental status exam: alert and consciousness, orientation, memory, speech - Cranial nerve test: Cranial nerves 2-12 intact - Motor system: Nutrition, Tone 3+, Power 4/5, no involuntary movements - Sensory system: Intact - Reflex testing: Biceps, triceps and knee reflexes 2+ - Cerebellar: Normal Skin: Warm and dry Diagnostic Data Last Recorded Lab Results: 05/16/25 0654 05/16/25 0254 Diagnostic Data: Laboratory Tests Test 05/15/25 23:17 Prothrombin Time 10.4 SECONDS (9.0-12.0) INR International Normalized Ratio 1.0 INR Activated Partial Thromboplast Time 25 SECONDS (22-32) Coagulation Comments Additional Plan 1.Gastrointestinal Bleeding (Likely Lower GI Source) Presentation with melena and mild hematochezia EGD: Normal stomach and duodenum; mild esophagitis only; no bleeding source CT abdomen: Colonic diverticulosis Hemoglobin stable at 13.2 g/dL Stool guaiac positive Plan: Scheduled for colonoscopy tomorrow to evaluate for: Diverticular bleeding Ischemic colitis Polyps or malignancy Bowel preparation with GoLYTELY ordered Continue IV Protonix 40 mg daily (can transition to oral after completion of GI workup) Monitor H/H daily unless clinical change NPO after midnight, clear liquid diet for now Avoid all NSAIDs 2.Abdominal Pain; Esophagitis Likely NSAID-related gastritis and esophagitis EGD negative for ulcer or bleeding Plan: Continue PPI therapy [employer] on strict NSAID avoidance Resume diet post-colonoscopy as tolerated 3.History of Ischemic Colitis Prior ischemic colitis noted on 2021 colonoscopy Risk factors: age, smoking, HTN, DM Plan: Evaluate for recurrence during colonoscopy Maintain adequate hydration and hemodynamic stability 4.Generalized Weakness Likely secondary to acute blood loss No focal neurologic deficits Low suspicion for CVA Plan: No further neurologic workup from GI standpoint Continue monitoring; reassess if symptoms change 5.Hypertension 6.Type 2 Diabetes Mellitus 7.Psychiatric Disorders (Anxiety,Depression,Psychosis) 8.Tobacco Use Disorder Management per hospitalist team DVT prophylaxis: SCDs Diet: NPO ; advance after colonoscopy Code status: Full code Disposition: Continue PCU- level care, pending colonoscopy Kendall Toribio MD Internal Medicine Resident, PGY-2 Date of Service: May 16, 2025 Billing Provider: ROXANA THOMPSON MD, GAURAV, RES May 16, 2025 15:18
--- NOTE | 2025-05-16 19:42 | DISCHARGE SUMMARY-Residence ---
Discharge Summary Providers to CC Resident Creating Document: CINDYCOLETTEKATHYSHUKRI KNIGHT ~ Discharge Summary Admission Diagnosis: UPPER GI BLEED Hospital Course DATE OF ADMISSION: 05/16/25 DATE OF DISCHARGE: 05/16/25 Discharge Diagnosis\Comment: PATIENT LEFT AMA Operations\Procedures: ENDOSCOPY: endoscopy which showed Normal stomach and duodenum; mild esophagitis only; no bleeding source Patient left AMA Consultants: GASTOENTEROLOGIST PATIENT LEFT AMA Complications: PATIENT LEFT AMA Condition on DC: Unstable Discharge Summary: HPI PER ADMITTIING PHYSICIAN A 64-year-old male with PMH of HTN and DM presented to the ED in view of blood and blood clots since 6:00 a.m. this morning. Patient had noticed that his pants were full with blood and blood clots followed by black tarry stools. Patient had associated weakness in his lower extremities with no dizziness or sensory deficits or slurring of speech, or loss of consciousness In 2021, patient had an episode of abdominal pain associated with bloody diarrhea when he underwent colonoscopy that revealed ischemic colitis, hyperplastic polyps and mild diverticulosis of the sigmoid colon. Patient endorses associated tight squeezing kind of pain in the epigastrium with a severity of 10/10 with no radiation with burping help relieve his pain. Patient uses NSAIDs (ibuprofen and naproxen) and [place] for pain in his knees. Patient denies any active anticoagulant use. Hospital Course This is 64 year old male with pmh of htn and DM presented to ED in vew of bleed and black tarry stools, in view of this patient was started on IV protonix drip, stool guiac was positive GI was consulted who recommended endoscopy and colono scopy,patient underwent endoscopy which showed Normal stomach and duodenum; mild esophagitis only; no bleeding source and was planned for colonoscopy however patient left against medical advice.By the time i go and talk to patient he already left and risk of leaving against medical advice were explained by GI team and paper signed AMA papers. Risk were explained to patient of leaving against medical adivce by GI team including bleeding,cardiac arrest,shock,, patient understands,was alert and oriented and decided to leave. Patient left against medical advice. *Problems/Diagnosis: (1) GI bleed Status: Acute Total Time Spent on D/C: Up to 30 Minutes Date of Service: May 16, 2025 Billing Provider: STORM CALIX MD Problem Qualifiers (1) GI bleed: GI bleed type/associated pathology: melena Qualified Codes: K92.1 - KATHY Cuevas, RES May 16, 2025 19:42
--- NOTE | 2025-05-18 10:57 | PATHOLOGY REPORT ---
[facility] [address] [place] [address] SURGICAL PATHOLOGY REPORT CaseNumber: [id number] Surgeon:Kasey Gramajo M.D. CLINICAL INFORMATION CLINICAL INFORMATION: Not provided. DIAGNOSIS DIAGNOSIS: STOMACH, ANTRUM; BIOPSY - NORMAL ANTRAL-TYPE GASTRIC MUCOSA. - NEGATIVE FOR INTESTINAL METAPLASIA. - NEGATIVE FOR H. PYLORI (CONFIRMED WITH IMMUNOSTAIN). MICROSCOPIC DESCRIPTION MICROSCOPIC DESCRIPTION: Reviewed is 1 H&E stained slide showing multiple levels of gastric antral-type mucosa. I see no significant increase in acute or chronic inflammation. There is no evidence of dysplasia, intestinal metaplasia, or Helicobacter pylori (confirmed with immunostain). GROSS DESCRIPTION GROSS DESCRIPTION: Received in a container of formalin labeled with the patient's name, number, and "antrum BX" is a 0.5 x 0.2 x 0.1 cm piece of tran tissue. The specimen is entirely submitted as A1. The time at which the specimen was removed was 1204. The time at which the specimen was placed in formalin was 1205. Electronically signed by: Nico Moore, 05/18/2025 10:22:00 AM
== END 2025-05-16 16:09 | disposition left against medical advice (07) | DRG 254 ==
LOC: ER 22:49 → ED HOLD 05-16 02:26 → PACU 05-16 12:14 → PCU 3S 05-16 15:00
PROVIDERS: ADMIT Internal Medicine; ATTEND Family Medicine
PROC: 0DB78ZX Excision of Stomach, Pylorus, Via Natural or Artificial Opening Endoscopic, Diagnostic (ICD-10-PCS; principal; 2025-05-16 11:54)
DX: K92.1 Melena (principal); F17.200 Nicotine dependence, unspecified, uncomplicated; F32.A Depression, unspecified; I10 Essential (primary) hypertension; Z53.21 Procedure and treatment not carried out due to patient leaving prior to being seen by health care provider; F41.9 Anxiety disorder, unspecified; K31.89 Other diseases of stomach and duodenum; K21.9 Gastro-esophageal reflux disease without esophagitis; Z79.899 Other long term (current) drug therapy; Z90.49 Acquired absence of other specified parts of digestive tract
CPT/HCPCS: 36415; 43239; 70450; 71045; 74176; 80048; 81001; 82948; 83036; 83605; 83735; 84132; 85025; 85027; 85610; 85730; 86885; 86900; 86901; 87040; 87088; 93005; 96374; 99285; A4615; G0378; J2270; J2405; J2470; J2704; J3010; J7030; J7120